=== PATIENT | male | born 1970 | race Hispanic/Latino ===

== ENCOUNTER 2021-06-06 06:05 | Observation (INO) | payer MEDICARE ==
[2021-06-05 11:48] LABS: BASOPHILS % (AUTO) 0.8 % (0.0-5.0); EOSINOPHILS % (AUTO) 1.3 % (0.0-8.0); HEMATOCRIT 23.5 % (42-54); LYMPHOCYTES % (AUTO) 32.1 % (21.0-51.0); MEAN CORPUSCULAR HEMOGLOBIN 24.2 pg (27.0-33.0); MEAN CORPUSCULAR HGB CONC 29.8 g/dL (32.0-36.0); MEAN CORPUSCULAR VOLUME 81.3 fL (79-99); MONOCYTES % (AUTO) 10.8 % (3.0-13.0); NEUTROPHILS % (AUTO) 54.5 % (40.0-77.0); PLATELET COUNT (AUTO) 213 K/uL (130-400); RED BLOOD CELL COUNT(AUTO) 2.89 MIL/uL (4.50-6.20); RED CELL DISTRIBUTION WIDTH 15.7 % (11.0-15.5); WHITE BLOOD COUNT (AUTO) 3.9 K/uL (4.8-10.8)
[2021-06-05 11:56] LABS: ALBUMIN 3.6 g/dL (3.5-5.0); BILIRUBIN,TOTAL 0.2 mg/dL (0.2-1.0); CREATININE 0.9 mg/dL (0.5-1.5); POTASSIUM 3.7 mmol/L (3.5-5.1); TOTAL PROTEIN, SERUM 6.9 g/dL (6.0-8.3)
[2021-06-05 12:16] VITALS: BP 107/72
[2021-06-06] VITALS (24 sets, daily range): BP systolic 94–134; BP diastolic 51–88
[~2021-06-06] VITALS: Ht 162.6 cm; Wt 104.1 kg
[2021-06-06] MEDS: CEFAZOLIN SODIUM 1 GM VIAL IVP SCH ×2 (06:00→13:00)
[~2021-06-06 06:05] MED LIST: ESOM40CA PO; FERR325T22 PO; PHARMACY COMMUNICATION MISC SCH; QUET200T5 PO
[2021-06-06] MEDS ORDERED: LACTATED RINGERS 1000ML 1,000 ML IV ONE (06:12)
[2021-06-06] MEDS ORDERED: AMLO-258 PO (06:41)
[2021-06-06] MEDS ORDERED: ROSU20TA31 PO (06:41)
[2021-06-06] MEDS ORDERED: METO25TA6 PO (06:41)
[2021-06-06] MEDS ORDERED: MELA10TA2 PO (06:42)
[2021-06-06] MEDS ORDERED: BUPIVACAINE/PF 0.25% 30ML VIAL IJ ONE (12:54)
[2021-06-06] MEDS ORDERED: KETAMINE 50MG/ML SYRINGE 50 MG/ML DISP.SYRIN IV ONE (12:57)
[2021-06-06] MEDS ORDERED: LIDOCAINE PF 100MG/5ML (2%) SYRINGE 5ML ONE (13:01)
[2021-06-06] MEDS ORDERED: PROPOFOL 10 MG/ML 20ML VIAL IV ONE (13:01)
[2021-06-06] MEDS ORDERED: ROCURONIUM 10MG/1ML SYR 10 MG/ML ML ONE (13:01)
[2021-06-06] MEDS ORDERED: MIDAZOLAM HCL 1 MG/ML 2ML VIAL ONE (13:05)
[2021-06-06] MEDS ORDERED: FENTANYL CITRATE PF 50 MCG/1 ML 2ML VIAL ONE ×2 (13:39→14:23)
[2021-06-06] MEDS ORDERED: GLYCOPYRROLATE 1 MG/5 ML SYRINGE ONE (15:58)
[2021-06-06] MEDS ORDERED: ONDANSETRON 4MG INJ ONE (15:58)
[2021-06-06] MEDS ORDERED: NEOSTIGMINE 5MG/5ML SYR IV ONE (15:58)
[2021-06-06] MEDS ORDERED: ONDANSETRON 4MG INJ IV PRN (16:00)
[2021-06-06] MEDS ORDERED: ACETAMINOPHEN WITH CODEINE 1 TAB TAB PO PRN (16:00)
[2021-06-06] MEDS: LACTATED RINGERS 1000ML 1,000 ML IV SCH (17:29)
[2021-06-06] MEDS: HYDROMORPHONE 0.5 MG SYG (0.5MG/0.5ML) IV PRN ×2 (17:32→21:53)
[2021-06-06] MEDS: FAMOTIDINE 20MG VIAL IV SCH (20:35)
[2021-06-07] MEDS: LACTATED RINGERS 1000ML 1,000 ML IV SCH ×3 (02:00→22:00)
[2021-06-07] MEDS: HYDROMORPHONE 0.5 MG SYG (0.5MG/0.5ML) IV PRN ×2 (02:24→08:03)
[2021-06-07 04:00] VITALS: BP 107/71
[2021-06-07 04:24] LABS: BASOPHILS % (AUTO) 0.4 % (0.0-5.0); HEMATOCRIT 25.4 % (42-54); LYMPHOCYTES % (AUTO) 9.6 % (21.0-51.0); MEAN CORPUSCULAR HEMOGLOBIN 24.6 pg (27.0-33.0); MEAN CORPUSCULAR HGB CONC 31.5 g/dL (32.0-36.0); MEAN CORPUSCULAR VOLUME 78.2 fL (79-99); NEUTROPHILS % (AUTO) 79.6 % (40.0-77.0); PLATELET COUNT (AUTO) 192 K/uL (130-400); RED BLOOD CELL COUNT(AUTO) 3.25 MIL/uL (4.50-6.20); RED CELL DISTRIBUTION WIDTH 15.1 % (11.0-15.5); WHITE BLOOD COUNT (AUTO) 7.7 K/uL (4.8-10.8)
[2021-06-07 04:44] LABS: CREATININE 0.8 mg/dL (0.5-1.5); POTASSIUM 3.3 mmol/L (3.5-5.1)
[2021-06-07] MEDS: CEFAZOLIN SODIUM 1 GM VIAL IVP SCH (05:29)
[2021-06-07] MEDS ORDERED: POTASSIUM CHLORIDE 10% ELIXIR 20 MEQ/15 ML UDCUP ONE (06:43)
[2021-06-07] MEDS: POTASSIUM CHLORIDE 10% ELIXIR 20 MEQ/15 ML UDCUP PO SCH (06:56)
[2021-06-07 08:00] VITALS: BP 151/90
[2021-06-07] MEDS: FAMOTIDINE 20MG VIAL IV SCH ×2 (08:03→21:12)
[2021-06-07 12:00] VITALS: BP 123/95
[2021-06-07 16:00] VITALS: BP 117/75
[2021-06-08] VITALS: BP 123/90
[2021-06-08 04:00] VITALS: BP 121/90
[2021-06-08] MEDS: CEFAZOLIN SODIUM 1 GM VIAL IVP SCH (05:26)
[2021-06-08] MEDS: POTASSIUM CHLORIDE 10% ELIXIR 20 MEQ/15 ML UDCUP PO SCH ×2 (06:13→14:30)
[2021-06-08 07:10] VITALS: BP 112/87
[2021-06-08] MEDS: LACTATED RINGERS 1000ML 1,000 ML IV SCH (08:00)
[2021-06-08] MEDS: FAMOTIDINE 20MG VIAL IV SCH (09:03)
[2021-06-08 10:05] VITALS: BP 117/58
[2021-06-08 10:35] LABS: BASOPHILS % (AUTO) 0.3 % (0.0-5.0); EOSINOPHILS % (AUTO) 1.1 % (0.0-8.0); HEMATOCRIT 28.2 % (42-54); LYMPHOCYTES % (AUTO) 12.2 % (21.0-51.0); MEAN CORPUSCULAR HGB CONC 32.3 g/dL (32.0-36.0); MEAN CORPUSCULAR VOLUME 77.5 fL (79-99); MONOCYTES % (AUTO) 11.6 % (3.0-13.0); NEUTROPHILS % (AUTO) 74.5 % (40.0-77.0); PLATELET COUNT (AUTO) 225 K/uL (130-400); RED BLOOD CELL COUNT(AUTO) 3.64 MIL/uL (4.50-6.20); RED CELL DISTRIBUTION WIDTH 14.9 % (11.0-15.5); WHITE BLOOD COUNT (AUTO) 6.4 K/uL (4.8-10.8)
[2021-06-08 10:53] LABS: INR 1.12 (0.85-1.15); PROTHROMBIN TIME 12.1 SEC (9.6-11.6)
[2021-06-08 11:15] VITALS: BP 102/71
[2021-06-08 11:15] LABS: ALBUMIN 2.8 g/dL (3.5-5.0); BILIRUBIN,TOTAL 0.4 mg/dL (0.2-1.0); CREATININE 0.8 mg/dL (0.5-1.5); POTASSIUM 3.5 mmol/L (3.5-5.1); TOTAL PROTEIN, SERUM 5.9 g/dL (6.0-8.3)
[2021-06-08] MEDS ORDERED: FERROUS SULFATE 325 MG TABLET.DR PO SCH (14:00)
[2021-06-08] MEDS ORDERED: FUROSEMIDE 20MG VIAL IV SCH (14:18)
[2021-06-08 15:15] VITALS: BP 107/81
[2021-06-08] MEDS ORDERED: MELATONIN 30 MG PO SCH (21:00)
[2021-06-08] MEDS ORDERED: AMLODIPINE 5 MG TAB PO SCH (21:00)
[2021-06-08] MEDS ORDERED: METOPROLOL TARTRATE 25 MG TAB PO SCH (21:00)
[2021-06-08] MEDS ORDERED: ATORVASTATIN 40 MG TABLET PO SCH (21:00)
[2021-06-08] MEDS ORDERED: SEROQUEL 200 MG PO SCH (21:00)
[2021-06-09] MEDS ORDERED: PANTOPRAZOLE 40 MG TAB DR PO SCH (09:00)
== END 2021-06-08 18:00 | disposition home or self-care (01) ==
LOC: DAH 06:05 → DAHIP 06:06 → DAH 06:06 → 3AH 17:30
PROVIDERS: ADMIT Surgery; ATTEND Surgery
DX: K44.0 Diaphragmatic hernia with obstruction, without gangrene (principal); Z20.822 Contact with and (suspected) exposure to COVID-19; K21.00 Gastro-esophageal reflux disease with esophagitis, without bleeding; I10 Essential (primary) hypertension; K31.9 Disease of stomach and duodenum, unspecified; G93.40 Encephalopathy, unspecified; D50.9 Iron deficiency anemia, unspecified; I63.9 Cerebral infarction, unspecified; E78.5 Hyperlipidemia, unspecified; Z79.899 Other long term (current) drug therapy; Z86.73 Personal history of transient ischemic attack (TIA), and cerebral infarction without residual deficits
CPT/HCPCS: 36415 ×4; 36430; 43235; 43281; 43659; 80048; 80053 ×2; 82948; 85025 ×3; 85610; 86850 ×2; 86900 ×2; 86901 ×2; 86923 ×2; 87635; 93005; 96374; 96375 ×2; 96376 ×3; A4215 ×2; A4221; A4222; A4223; A4600; A4649 ×2; A4663; A4930; A6260; C9803; G0168; G0378 ×49; J0690; J1170 ×4; J1940; J2001; J2250; J2405; J2704; J2710; J3010 ×2; J3490 ×6; J7030; J7040; J7120 ×4; P9016 ×2